=== PATIENT | male | born 1930 | race Caucasian/White ===

== ENCOUNTER 2018-05-15 13:09 | Observation (INO) | payer OTHER, BC ==
[~2018-05-15] VITALS: Ht 177.8 cm; Wt 61.2 kg
[2018-05-15 13:14] VITALS: Ht 177.8 cm; Wt 61.2 kg
[2018-05-15 13:54] LABS: BASOPHIL % 0.6 % (0-2); PLATELET COUNT 283 x10^3mcL (130-400); RED CELL DISTRIBUTION WIDTH 12.8 % (11.5-14.5)
[2018-05-15 14:13] LABS: CALCIUM 8.3 mg/dL (8.5-10.1); CARBON DIOXIDE 28.7 mmol/L (21-32); CHLORIDE SERUM 97 mmol/L (98-107); CREATININE SERUM 1.2 mg/dL (0.7-1.3); GLUCOSE SERUM 163 mg/dL (74-106); POTASSIUM SERUM 4.1 mmol/L (3.5-5.1); SODIUM SERUM 132 mmol/L (136-145)
[2018-05-15 14:18] LABS: ALBUMIN 3.4 g/dL (3.4-5.0); ALKALINE PHOSPHATASE 58 U/L (46-116); ALT/SGPT 21 U/L (16-63); AST/SGOT 23 U/L (15-37); BILIRUBIN TOTAL 0.41 mg/dL (0.20-1.00); TOTAL PROTEIN, SERUM 6.4 g/dL (6.4-8.2)
[2018-05-15 16:40] VITALS: BP 170/85
== END 2018-05-15 17:14 | disposition left against medical advice (07) | DRG 312 ==
LOC: ED 13:09 → DU 15:10
PROVIDERS: ADMIT Internal Medicine
DX: R55 Syncope and collapse (principal); Z95.0 Presence of cardiac pacemaker; Z95.5 Presence of coronary angioplasty implant and graft; Z53.21 Procedure and treatment not carried out due to patient leaving prior to being seen by health care provider
CPT/HCPCS: 83880; 85378; G0378; Q0092

== ENCOUNTER 2018-05-26 06:36 | Inpatient (IN) | payer OTHER, BC ==
[~2018-05-26] VITALS: Ht 177.8 cm; Wt 61.2 kg
[2018-05-26 07:12] LABS: BASOPHIL % 0.5 % (0-2); PLATELET COUNT 223 x10^3mcL (130-400); RED CELL DISTRIBUTION WIDTH 13.1 % (11.5-14.5)
[2018-05-26 07:25] LABS: CALCIUM 8.5 mg/dL (8.5-10.1); CHLORIDE SERUM 100 mmol/L (98-107); CREATININE SERUM 0.9 mg/dL (0.7-1.3); GLUCOSE SERUM 94 mg/dL (74-106); POTASSIUM SERUM 4.1 mmol/L (3.5-5.1); SODIUM SERUM 136 mmol/L (136-145)
[2018-05-26 07:30] LABS: ALBUMIN 3.5 g/dL (3.4-5.0); ALKALINE PHOSPHATASE 59 U/L (46-116); ALT/SGPT 27 U/L (16-63); AST/SGOT 22 U/L (15-37); BILIRUBIN TOTAL 0.88 mg/dL (0.20-1.00); TOTAL PROTEIN, SERUM 6.5 g/dL (6.4-8.2)
[2018-05-26] MEDS ORDERED: XANAX0.25 MG PO (08:48)
[2018-05-26] MEDS ORDERED: SEROQUEL25 MG PO (08:49)
[2018-05-26] MEDS ORDERED: METOPROLOL TART50 MG PO (08:49)
[2018-05-26] MEDS ORDERED: ISOSORBIDE DINI30 M2 PO (08:49)
[2018-05-26] MEDS ORDERED: PRAVASTATIN SOD10 M1 PO (08:50)
[2018-05-26] MEDS ORDERED: CATAPRES0.1 MG PO (08:50)
[2018-05-26] MEDS ORDERED: EPZICOM1 TAB (08:50)
[2018-05-26] MEDS ORDERED: IBUPROFEN400 MG PO (08:50)
[2018-05-26] MEDS ORDERED: AVODART0.5 M1 PO (08:51)
[2018-05-26 10:52] VITALS: BP 183/74
[2018-05-26 13:33] VITALS: BP 157/65
[2018-05-26 16:46] VITALS: BP 109/62
[2018-05-26 22:05] VITALS: BP 118/70
[2018-05-27 06:08] VITALS: BP 154/69
[2018-05-27 09:07] VITALS: BP 138/63
[2018-05-27 10:10] VITALS: Ht 177.8 cm; Wt 61.2 kg
[2018-05-27 12:31] VITALS: BP 118/62
== END 2018-05-27 14:38 | disposition home health service (06) | DRG 312 ==
LOC: ED 06:36 → DU 08:43
PROVIDERS: Emergency Medicine; ADMIT Internal Medicine
DX: R55 Syncope and collapse (principal); I10 Essential (primary) hypertension; E78.5 Hyperlipidemia, unspecified; Z95.0 Presence of cardiac pacemaker; Z95.5 Presence of coronary angioplasty implant and graft
CPT/HCPCS: J7040; Q0092